=== PATIENT | male | born 1965 | race Caucasian/White ===

== ENCOUNTER 2020-07-31 23:32 | Emergency (ER) | payer MEDICAID, OTHER ==
[~2020-07-31] VITALS: Ht 185.4 cm; Wt 90.7 kg
--- NOTE | 2020-07-31 23:50 | NUR ---
PATIENT BIBEMS C/O ABDOMINAL PAIN WITH N/V SINCE THIS MORNING. BS-114. PATIENT A/OX 3-4, RR EVEN AND UNLABORED, NO SOB. PATEINT CONNECTED TO MONITOR, VSS, WILL CONTINUE TO MONIOTR.
[2020-07-31] MEDS ORDERED: ONDANSETRON HCL/PF 4 MG/2 ML VIAL ONE (23:55)
[2020-07-31 23:59] LABS: BASOPHILS % (AUTO) 0.3 % (0.0-2.0); EOSINOPHILS % (AUTO) 0.4 % (0.0-6.0); HEMATOCRIT 55 % (39-51); LYMPHOCYTES # (AUTO) 1.6 /CMM (0.8-4.8); LYMPHOCYTES % (AUTO) 11.2 % (20.0-44.0); MEAN CORPUSCULAR HGB CONC 33 g/dl (31.0-36.0); MEAN CORPUSCULAR VOLUME 91 fL (80-96); MONOCYTES # (AUTO) 0.6 /CMM (0.1-1.30); MONOCYTES % (AUTO) 4.2 % (2.0-12.0); NEUTROPHILS # (AUTO) 12.2 /CMM (1.8-8.9); NEUTROPHILS % (AUTO) 83.9 % (43.0-81.0); PLATELET COUNT (AUTO) 223 /CMM (150-450); RED BLOOD CELL COUNT(AUTO) 6.04 MIL/uL (4.5-6.0); WHITE BLOOD COUNT (AUTO) 14.5 K/uL (4.3-11.0)
[2020-08-01] MEDS ORDERED: IV NS 0.9% 1,000 ML IV ONE
[2020-08-01] MEDS ORDERED: ONDANSETRON HCL/PF 4 MG/2 ML VIAL IV ONE
[2020-08-01 00:07] LABS: CALCIUM, SERUM 10.2 mg/dL (8.5-10.1); CREATININE 1.3 mg/dL (0.6-1.3); POTASSIUM 3.4 mmol/L (3.5-5.1)
--- NOTE | 2020-08-01 00:07 | NUR ---
PATIENT TAKEN TO CT
--- NOTE | 2020-08-01 00:11 | NUR ---
PATIENT RETURNED FROM CT
[2020-08-01 00:13] LABS: ALBUMIN 4.5 g/dL (3.4-5.0); BILIRUBIN,DIRECT 0.1 mg/dL (0.0-0.2); BILIRUBIN,TOTAL 0.4 mg/dL (0.2-1.0); TOTAL PROTEIN, SERUM 9.4 g/dL (6.4-8.2)
[2020-08-01 00:29] LABS: EOSINOPHILS % (MANUAL) 1 % (0-4); LYMPHOCYTES % (MANUAL) 18 % (16-48); MONOCYTES % (MANUAL) 5 % (0-11.0); NEUTROPHILS % (MANUAL) 76 (42-76)
--- NOTE | 2020-08-01 01:00 | NUR ---
URINE COLLECETED AND SENT TO LAB
[2020-08-01 01:08] LABS: BILIRUBIN,URINE MODERATE (NEGATIVE); COLOR,URINE YELLOW (YELLOW); LEUKOCYTE ESTERASE ,URINE Negative (NEGATIVE); NITRITE, URINE Negative (NEGATIVE); PROTEIN,URINE 100 mg/dl (NEGATIVE); UGLUCOSE Negative (NEGATIVE)
--- NOTE | 2020-08-01 01:21 | NUR ---
COVID SWAB COLLECETED AND SENT TO LAB
[2020-08-01] MEDS ORDERED: MORPHINE SULFATE INJ 4 MG/ML DISP.SYRIN ONE (02:17)
--- NOTE | 2020-08-01 02:22 | NUR ---
JAMAL ALVAREZ SPOKE TO DR. ROWELL FROM [facility] REGARDING PT TRANSFER.
--- NOTE | 2020-08-01 02:24 | NUR ---
PATIENT STATES 8/10 ABD PAIN PER MD ORDER 4 MG MORPHINE IVP MED ADMINISTERED
[2020-08-01 02:33] LABS: BACTERIA,URINE Few /HPF (None Seen); RBC,URINE 0-2 /HPF (0-2); SQUAMOUS EPITHELIAL CELL,UR Few /HPF (None Seen); WBC,URINE 21-50 /HPF (0-3)
--- NOTE | 2020-08-01 02:39 | NUR ---
CALL FROM LAB. RAPID COVID NEGATIVE.
[2020-08-01] MEDS ORDERED: MORPHINE SULFATE INJ 2 MG/ML DISP.SYRIN IV ONE (03:00)
--- NOTE | 2020-08-01 03:40 | NUR ---
PT ACCEPTED TO [facility] BY DR GARCIA. ROOM [id number]. # FOR REPORT [phone]
--- NOTE | 2020-08-01 04:00 | NUR ---
[facility] CALLED FOR TRANSPORT. ETA 45-60 MINUTES.
--- NOTE | 2020-08-01 04:13 | NUR ---
REPORT GIVEN TO MANUEL MILLER FOR GUANACO GOING TO ROOM [id number]
--- NOTE | 2020-08-01 04:37 | NUR ---
[facility] at bed side to mushroom picker the pt
[2020-08-01 04:50] VITALS: BP 128/69
== END 2020-08-01 04:52 | disposition short-term general hospital (02) ==
LOC: ER 23:34
DX: K40.30 Unilateral inguinal hernia, with obstruction, without gangrene, not specified as recurrent (principal); E11.9 Type 2 diabetes mellitus without complications; R11.2 Nausea with vomiting, unspecified; Z20.822 Contact with and (suspected) exposure to COVID-19
CPT/HCPCS: 36415; 74176; 80048; 80076; 81001; 83690; 85007; 85025; 87086; 87426; 96361; 96374; 96375; 99285; C9803; J2270; J2405; J7030